=== PATIENT | female | born 2005 | race Hispanic/Latino ===

== ENCOUNTER 2023-08-21 10:08 | Emergency (ER) | payer OTHER, SELFPAY ==
--- NOTE | ~2023-08-21 | CT_ITS ---
EXAMINATION: CT soft tissue neck w con DATE: 08/21/2023 15:51 INDICATION: Neck swelling. Trismus. TECHNIQUE: Computed tomography (CT) of the neck was performed with 75 mL Omnipaque-350 intravenous co ntrast. Automated exposure control and iterative reconstruction technique were employed. The dose-gaby gth product was 438.63 mGy-cm. COMPARISON: None FINDINGS: Orbits are normal. Mucous retention cyst in the left maxillary sinus. There is some bubbly mucus in t he posterior left ethmoid sinus. The mastoid air cells and middle ear cavities are clear. Submandibul ar and parotid glands are symmetric. Thyroid gland is unremarkable. There multiple prominent bilatera l facial and cervical lymph nodes. The largest bilateral level 2 jugular chain lymph nodes measure up to 2.2 cm in maximal short axis diameter on the left and 2.1 cm on the right. Additional prominent b ut still normal-sized lymph nodes are seen in the bilateral submandibular chains, along the more caud al bilateral jugular chains, left greater than right and in the left posterior cervical triangle. No other masses identified. The vasculature is patent and normal in caliber. Airway is unremarkable. Th ere is mixed soft tissue and fat density with irregular morphology in the anterior mediastinum consis tent with residual thymic tissue. Visualized upper lungs are clear. Likely positional mild reversal o f the normal cervical lordosis. Bones are otherwise unremarkable. IMPRESSION: 1. Bilateral facial and cervical lymphadenopathy with the largest bilateral high jugular chain lymph nodes measuring 2.2 cm and 2.1 cm in maximal short axis diameter. While most likely reactive differen tial would also include lymphoma or less likely metastatic disease. Correlate clinically and could co nsider either clinical follow-up with repeat imaging or ultrasound guided biopsy. Reviewed, dictated and finalized at location A. STANT SECRETARY IMPRESSION: 1. Bilateral facial and cervical lymphadenopathy with the largest bilateral hig h jugular chain lymph nodes measuring 2.2 cm and 2.1 cm in maximal short axis d iameter. While most likely reactive differential would also include lymphoma or less likely metastatic disease. Correlate clinically and could consider either clinical follow-up with repeat imaging or ultrasound guided biopsy.
[2023-08-21 10:38] VITALS: BP 131/80; PULSE 105; RESP 16; TEMP 36.2; O2SAT 98
[2023-08-21 13:56] VITALS: BP 119/80; PULSE 100; RESP 18; TEMP 37.7; O2SAT 100
--- NOTE | 2023-08-21 13:58 | ED.NECK ---
HPI - Neck Pain/Injury General Chief Complaint: Neck Pain/Injury Stated Complaint: neck Time Seen by Provider: 08/21/23 13:55 History of Present Illness HPI Narrative: Patient is a healthy 18-year-old female here with sore throat, neck pain, lesions on her gums. She states that about 2 weeks ago she was sick with a upper respiratory syndrome. The symptoms seemed to improve until 4 days ago when she began having a subjective fever and chills. She notes that on Sunday she began feeling a weird sensation in her gums, they seem to be more swollen. Yesterday she started experiencing a sore throat as well as some fullness on the right side of her neck. She notes she has had significant nausea which has limited her ability to eat or drink anything today. She also has noted some sores throughout her tongue and her mouth. She notes a history of sensitive comes and has had swelling of her gums in the past. She has not taken anything for her symptoms today. Related Data Allergies Allergy/AdvReac Type Severity Reaction Status Date / Time No Known Allergies Allergy Mild Verified 08/21/23 13:54 Review of Systems Review of Systems: All systems reviewed & are unremarkable except as noted in HPI and below Exam Narrative: GENERAL: Well-appearing, well-nourished, and in no acute distress. HEAD: Normocephalic, atraumatic. EYES: PERRLA and EOMI. ENT: Nares clear. Trismus present which limits posterior pharyngeal exam. Vesicular lesions present on tip of tongue and scattered throughout gums. Gums erythematous. Tender right cervical lymphadenopathy. NECK: Supple. CHEST: Clear to auscultation. No respiratory distress. HEART: Regular rate and rhythm. Normal peripheral pulses. ABDOMEN: Soft, nontender, nondistended. EXTREMITIES: Normal range of motion. No edema. SKIN: Warm, dry, no rash. NEURO: No focal deficits. Alert and oriented x3. PSYCH: Normal mood and affect. Course Course Emergency Course: Chart review performed. Patient here with wisdom teeth problems, chills and swollen lymph nodes. Afebrile in triage. No prior visits in our system. No home meds documented. Patient seen and evaluated, non toxic appearing. Lesions present over gums, most likely due to viral syndrome given lack of medical history. In context of trismus, chills and lymphadenopathy on right, will do CT soft tissue neck. CMP within normal limits. CRP elevated at 9.0, COVID, Influenza, RSV, strep swabs all negative. White blood cell count of 12.4. CT shows bilateral facial and cervical lymphadenopathy, most likely reactive. Will give dose of clindamycin here, discharge on clindamycin and magic mouthwash with ENT referral to follow her lymphadenopathy along with her PCP. Patient reevaluated, feeling a bit better with decadron. The results of pertinent diagnostic studies and exam findings were discussed. The patient?s provisional diagnosis and plan of care were discussed with the patient and present family. The patient and/or present family expressed understanding of the diagnosis and plan. The nurse was instructed to provide written instructions and appropriate follow-up information. The patient understands their need and responsibility to obtain additional follow-up as instructed. The risks of medications administered and prescribed were discussed with the patient and family present.. Vital Signs Vital signs: Vital Signs Temperature 97.2 F L 08/21/23 10:38 Pulse Rate 105 H 08/21/23 10:38 Respiratory Rate 16 08/21/23 10:38 Blood Pressure 131/80 08/21/23 10:38 Pulse Oximetry 98 08/21/23 10:38 Temperature 99.8 F H 08/21/23 13:56 Pulse Rate 100 08/21/23 13:56 Respiratory Rate 18 08/21/23 13:56 Blood Pressure 119/80 08/21/23 13:56 Pulse Oximetry 100 08/21/23 13:56 MDM - Neck Pain/Injury Lab Data 08/21/23 15:02 08/21/23 15:02 Labs: Lab Results 08/21/23 08/21/23 Range/Units 14:52 15:02 WB
[2023-08-21] MEDS: LACTATED RINGERS 1,000 ML 999 ML IV CONT (15:08)
[2023-08-21] MEDS: ONDANSETRON INJ 4 MG/2 ML VIAL IV PUSH (15:09)
[2023-08-21 15:13] LABS: Hematocrit 44.3 % (37.0-47.0); Hemoglobin 14.2 g/dL (12.0-15.0); Mean Corpuscular HGB Conc 32.1 g/dl (32-36); Mean Corpuscular Volume 84.2 fl (80-100); Mean Platelet Volume 9.7 fl (7.4-10.4); Platelet Count Result 335 k/mm3 (150-375); Red Blood Count 5.26 M/mm3 (4.2-5.4); Red Cell Distribution Width 13.2 % (11.5-14.5); White Blood Count 12.4 K/mm3 (4.5-10.0)
[2023-08-21 15:27] LABS: Strep Group A RT-PCR NOT DETECTED (Negative)
[2023-08-21 15:27] LABS: Alanine Aminotransferase 22 U/L (6-35); Albumin Level 4.8 g/dL (3.5-5.1); Alkaline Phosphatase 85 U/L (38-126); Anion Gap 15 mmol/L (8-16); Aspartate Amino Transferase 29 U/L (14-36); Blood Urea Nitrogen 8 mg/dL (7-17); Calcium 9.8 mg/dL (8.4-10.2); Carbon Dioxide 26 mmol/L (22-30); Chloride 96 mmol/L (98-107); Estimated CRCL calculation 140 ml/min; Estimated Glomerular Filt Rate > 60; Glucose 97 mg/dL (65-110); Sodium 137 mmol/L (137-145)
[2023-08-21 15:36] LABS: Influenza A QL RT-PCR Negative (Negative); Influenza B QL RT-PCR Negative (Negative); RSV RNA, RT-PCR Negative (Negative); SARS-CoV-2 RNA PCR Negative (Negative)
[2023-08-21 16:01] LABS: Band Neutrophils Percent 2 % (0-6); Lymphocytes Absolute Manual 1.36 K/mm3 (1.1-4.5); Monocytes Absolute Manual 0.49 K/mm3 (0.1-0.90); Monocytes Percent Manual 4 % (3-9); Neutrophils Absolute Manual 10.54 K/mm3 (1.7-7.2); Neutrophils Percent Manual 83 % (46-73); Schistocytes None Seen (NORMAL); Total Cells Counted 100
[2023-08-21 16:02] LABS: Platelet Estimate Adequate (Adequate)
[2023-08-21] MEDS: CLINDAMYCIN 600 MG/D5W 50 ML 600 MG/50 ML PIGGYBACK 100 MG IVPB (17:44)
[2023-08-21 17:46] VITALS: BP 117/79; PULSE 83; RESP 16; TEMP 36.8; O2SAT 97
--- NOTE | 2023-08-30 13:51 | PC.NURSE ---
LATE ENTRY This note is being entered to document information to the patient's record. The following information was omitted on [08/21/23], by [Gage Thomson RN]. Clindamyacin done at 1815
== END 2023-08-21 18:52 | disposition home or self-care (01) ==
PROVIDERS: Emergency Provider Student in an Organized Health Care Education/Training Program; PCP Registered Nurse
DX: R59.9 Enlarged lymph nodes, unspecified (principal); K06.9 Disorder of gingiva and edentulous alveolar ridge, unspecified; K05.6 Periodontal disease, unspecified; Z20.822 Contact with and (suspected) exposure to COVID-19
CPT/HCPCS: 36415; 70491; 80053; 81025; 85025; 86140; 87637; 87651; 96361; 96365; 96375; 99284; J1100; J2405; J7120; Q9967